=== PATIENT | male | born 1995 | race Caucasian/White ===

== ENCOUNTER 2017-06-01 06:40 | Emergency (ER) | payer BC ==
[2017-06-01 08:11] LABS: ABS Basophils 0 10^3/ul (0-0.2); ABS Eosinophils 0.3 10^3/ul (0-0.6); ABS Lymphocytes 1.5 10^3/ul (1.0-4.8); ABS Monocytes 0.7 10^3/ul (0-0.8); ABS Neutrophils 6.1 10^3/ul (1.5-7.7); ABS Nucleated RBC 0.01 10^3/ul; Eosinophil % 3.9 % (0-6); Hematocrit 50 % (42-52); Hemoglobin 17.2 g/dl (14.0-18.0); Lymphocyte % 16.9 % (25-47); Mean Corpuscular HGB Conc 35 g/dl (31-36); Mean Corpuscular Hemoglobin 30 pg (27-31); Mean Corpuscular Volume 86 fL (80-94); Mean Platelet Volume 9 um3 (7.4-10.4); Nucleated Red Blood Cells % 0.1; Platelet Count 212 10^3/ul (150-450); Red Blood Count 5.79 10^6/ul (4.0-5.4); Red Cell Distribution Width 13 % (10.5-15); White Blood Count 8.6 10^3/ul (3.5-10.8)
--- NOTE | 2017-06-01 08:15 | RAD ---
INDICATION: Short of breath COMPARISON: None TECHNIQUE: PA and lateral dual-energy views were obtained. FINDINGS: Bones/Soft Tissues: There are no acute bony findings. Cardiomediastinal: The cardiomediastinal silhouette is normal. Lungs: There are no infiltrates. Pleura: There are no pleural effusions. Other: None IMPRESSION: NEGATIVE EXAMINATION.
[2017-06-01 08:20] LABS: EGFR Non-African American 87.5 (>60)
[2017-06-01 08:37] VITALS: BP 148/84
--- NOTE | 2017-06-21 18:30 | ED ---
Jorge Gonzalez Thomas, scribed for Ronald Selby MD on 06/01/17 at 0804 . Allergic Reaction/Systemic - HPI Summary HPI Summary: The patient is a 22 year old male presenting to the ED complaining of facial and bilateral upper extremity erythema and rash beginning last evening but worsened upon waking. Patient describes bubbles on bilateral upper extremity. Patient reports facial swelling and mild SOB upon exertion. Patient denies coughing, wheezing, fever, chills, and asthma, or use of new soaps. Patient has a history of bee allergies and eczema. - History of Current Complaint Chief Complaint: EDAllergicReaction Hx Obtained From: Patient Onset/Duration: Started days ago - 1 day, Still Present Timing: Constant Severity Initially: Mild Severity Currently: Mild Pain Intensity: 3 Pain Scale Used: 0-10 Numeric Location: Diffuse - Facial and bilateral upper extremity Character: Swelling - facial Aggravating Factor(s): Nothing Alleviating Factor(s): Nothing Associated Signs And Symptoms: Positive: Difficulty Breathing - mild, upon exertion, Rash. Negative: Cough Wheezing, Other: - coughing, wheezing, fever, chills - Related Hx Possible Reaction To: Other: - soaps - Allergies/Home Medications Allergies/Adverse Reactions: Allergies Allergy/AdvReac Type Severity Reaction Status Date / Time Bee Venom Allergy Anaphylatic Verified 06/01/17 06:53 Shock spider bites Allergy Anaphylatic Uncoded 06/01/17 06:53 Shock PMH/Surg Hx/FS Hx/Imm Hx Previously Healthy: Yes Cardiovascular History: Reports: Other Cardiovascular Problems/Disorders - PT STATES "IRREGULAR HEARTBEAT" Respiratory History: Denies: Hx Asthma Musculoskeletal History: Reports: Hx Orthopedic Injury Infectious Disease History: No Infectious Disease History: Denies: Traveled Outside the [place] in Last 30 Days - Family History Known Family History: Positive: Other - breast and brain cancer - Social History Occupation: Employed Full-time Alcohol Use: None Substance Use Type: Reports: None Smoking Status (MU): Never Smoked Tobacco Review of Systems Negative: Fever, Chills Positive: Erythema, Other - edema Positive: Shortness Of Breath - mild upon exertion. Negative: Cough Positive: Rash - face and bilateral upper extremity All Other Systems Reviewed And Are Negative: Yes Physical Exam - Summary Physical Exam Summary: Appearance: Well-appearing, Well-nourished Skin: Rash on bilateral flexors. There is facial erythema Eyes: , PERRL, EOMI, sclera anicteric. There is periorbital edema. ENT: Normal Neck: Supple, nontender Respiratory: Clear to auscultation Cardiovascular: S1, S2, no murmur, no rub, no gallop Abdomen: Soft, nontender, no organomegaly Bowel sounds: Present Musculoskeletal: Normal, Strength/ROM Intact, no edema, pulses symmetrical Neurological: Normal, A&Ox3, cranial nerves II-XII WNL, follows commands, gait not tested, sensation intact to pin and light touch Psychiatric: affect normal, behavior appropriate, dressed appropriately, judgment intact Triage Information Reviewed: Yes Vital Signs On Initial Exam: Initial Vitals Temp Pulse Resp BP Pulse Ox 98.5 F 66 16 150/85 98 06/01/17 06:48 06/01/17 06:48 06/01/17 06:48 06/01/17 06:48 06/01/17 06:48 Vital Signs Reviewed: Yes - Danny Coma Scale Coma Scale Total: 15 Diagnostics - Vital Signs Vital Signs Temp Pulse Resp BP Pulse Ox 06/01/17 06:48 98.5 F 66 16 150/85 98 - Laboratory Result Diagrams: 06/01/17 07:40 06/01/17 07:40 Lab Statement: Any lab studies that have been ordered have been reviewed, and results considered in the medical decision making process. Allergic Reaction Course/Dx - Course Assessment/Plan: The patient's history and physical exam findings are consistent with contact dermatitis and eczema. The patient was observed for a couple of hours in the emergency department with no changes in symptoms noted. He will be discharged home. - Diagnoses Provider Diagnoses: Contact dermatitis, Eczema Discharge - Discharge Plan Condition: Stable Disposition: HOME The documentation as recorded by the Jorge whitney Thomas accurately reflects the service I personally performed and the decisions made by , Ronald Selby MD.
== END 2017-06-01 08:36 | disposition home or self-care (01) ==
LOC: ED 06:40
DX: L25.9 Unspecified contact dermatitis, unspecified cause (principal); R06.02 Shortness of breath; L53.9 Erythematous condition, unspecified; L30.9 Dermatitis, unspecified; R21 Rash and other nonspecific skin eruption
CPT/HCPCS: 36415; 71020; 80053; 85025; 99282

== ENCOUNTER 2019-04-09 17:52 | Emergency (ER) | payer BC ==
[2019-04-09 18:17] VITALS: BP 128/63
--- NOTE | 2019-04-09 19:03 | UC ---
General HPI - HPI Summary HPI Summary: Patient is a 24-year-old male presenting with tick bite to right side of ribs that he obtained yesterday while hunting. He removed it today but believes that the head may be attached to his skin still. He is concerned about bullseye rash as well. States the tick was on for maybe 10-12 hours. Denies fever or chills. Denies nausea or vomiting. Denies any drainage or bleeding from the site where the tick was attached. - History of Current Complaint Chief Complaint: UCSkin Stated Complaint: TICK BITE Hx Obtained From: Patient Pain Intensity: 1 - Allergy/Home Medications Allergies/Adverse Reactions: Allergies Allergy/AdvReac Type Severity Reaction Status Date / Time bee venom protein (honey bee) Allergy Anaphylatic Verified 04/09/19 18:18 Shock spider bites Allergy Anaphylatic Uncoded 04/09/19 18:18 Shock Home Medications: Home Medications NK [No Home Medications Reported] 04/09/19 [History Confirmed 04/09/19] PMH/Surg Hx/FS Hx/Imm Hx Previously Healthy: Yes - Surgical History Surgical History: Yes Surgery Procedure, Year, and Place: nose surgery, left eye surgery - Family History Known Family History: Positive: Other - breast and brain cancer - Social History Alcohol Use: Occasionally Substance Use Type: Marijuana Smoking Status (MU): Current Some Day Smoker Type: Cigars Review of Systems All Other Systems Reviewed And Are Negative: Yes Constitutional: Positive: Negative. Negative: Fever, Chills Skin: Positive: Other - tick bite to R chest Respiratory: Positive: Negative Cardiovascular: Positive: Negative Gastrointestinal: Positive: Negative Musculoskeletal: Positive: Negative Neurological: Positive: Negative Physical Exam Triage Information Reviewed: Yes Appearance: Well-Appearing, No Pain Distress, Well-Nourished Vital Signs: Initial Vital Signs Temp 98.3 F 04/09/19 18:13 Pulse 66 04/09/19 18:13 Resp 16 04/09/19 18:13 BP 128/63 04/09/19 18:13 Pulse Ox 100 04/09/19 18:13 Vital Signs Reviewed: Yes Eyes: Positive: Conjunctiva Clear ENT: Positive: Hearing grossly normal Neck: Positive: Supple Respiratory: Positive: No respiratory distress Neurological: Positive: Alert Psychological: Positive: Age Appropriate Behavior Skin: Positive: Other - 1cm area of erythema noted on R lateral chest where tick was attached. no head attached. no warmth or drainage noted Course/Dx - Course Course Of Treatment: Educated the patient on tick bites and Lyme disease. Patient was not given prophylactic treatment as tick was attached for 12 hours maximum. Instructed him to look for any signs and symptoms of skin infection over the next few days and to look for any signs of Lyme disease over the next month or so. Instructed him to follow up with PCP if needed. Patient voiced understanding and agreed with the plan. - Diagnoses Provider Diagnosis: Tick bite of right side of chest wall Discharge ED - Sign-Out/Discharge Documenting (check all that apply): Patient Departure All imaging exams completed and their final reports reviewed: No Studies - Discharge Plan Condition: Stable Disposition: HOME Patient Education Materials: Tick Bite (ED) Referrals: [facility] [Outside] - If Needed Additional Instructions: There does not appear to be any part of the tick left in your skin and there is no sign of infection. No treatment is needed at this time. Follow up with the [facility] if you experience weakness, severe headache, or a rash where you were the tick bit you. Go to the emergency room if you experience increasing redness, warmth, or drainage to the area. - Billing Disposition and Condition Condition: STABLE Disposition: Home
== END 2019-04-09 19:27 | disposition home or self-care (01) ==
LOC: UCEAST 17:52
DX: S20.361A Insect bite (nonvenomous) of right front wall of thorax, initial encounter (principal); F17.210 Nicotine dependence, cigarettes, uncomplicated; Z91.030 Bee allergy status; Z91.038 Other insect allergy status; W57.XXXA Bitten or stung by nonvenomous insect and other nonvenomous arthropods, initial encounter; Y92.9 Unspecified place or not applicable
CPT/HCPCS: 99211; G0463

== ENCOUNTER 2019-04-11 07:57 | Emergency (ER) | payer BC ==
[2019-04-11 08:03] VITALS: BP 151/98
--- NOTE | 2019-04-11 09:33 | ED ---
Skin Complaint - HPI Summary HPI Summary: This patient is a 24-year-old male who presents to the ED with the concern for a tick bite to his right side/abdomen. He states he first noticed the tick 2 days ago and was hunting that day. He believes he had a tick attached for less than 12 hours, but it could've been up to 24. He dislodge the tick 2 days ago. He endorses a very small slightly erythematous area just around with the tick was attached measuring approximately 0.5 cm in length. He states he is having no symptoms, but his boss sent him in here to "get antibiotics." He endorses no pain, joint aches, fevers, no history of Lyme disease. - History of Current Complaint Chief Complaint: EDGeneral Time Seen by Provider: 04/11/19 08:06 Stated Complaint: TICK BITE PER PT Hx Obtained From: Patient Onset/Duration: Started Days Ago Skin Exposure Onset/Duration: Days Ago Timing: Constant Onset Severity: Mild Current Severity: None Pain Intensity: 0 Pain Scale Used: 0-10 Numeric Skin Location: Other: - right sided abdomen Aggravating Symptom(s): Nothing Alleviating Symptom(s): Nothing Associated Signs & Symptoms: Negative Related History: Insect Bite/Sting - Allergy/Home Medications Allergies/Adverse Reactions: Allergies Allergy/AdvReac Type Severity Reaction Status Date / Time bee venom protein (honey bee) Allergy Anaphylatic Verified 04/11/19 08:27 Shock spider bites Allergy Anaphylatic Uncoded 04/11/19 08:27 Shock PMH/Surg Hx/FS Hx/Imm Hx Previously Healthy: Yes Cardiovascular History: Reports: Other Cardiovascular Problems/Disorders - PT STATES "IRREGULAR HEARTBEAT" Respiratory History: Denies: Hx Asthma Musculoskeletal History: Reports: Hx Orthopedic Injury - Surgical History Surgery Procedure, Year, and Place: nose surgery, left eye surgery - Immunization History Hx Pertussis Vaccination: No Immunizations Up to Date: Yes Infectious Disease History: No Infectious Disease History: Denies: Traveled Outside the [place] in Last 30 Days - Family History Known Family History: Positive: Other - breast and brain cancer - Social History Occupation: Employed Full-time Lives: With Family Alcohol Use: Weekly Hx Substance Use: No Substance Use Type: Reports: None Smoking Status (MU): Never Smoked Tobacco Type: Cigars Review of Systems Negative: Fever, Chills, Fatigue, Skin Diaphoresis Negative: Palpitations, Chest Pain Negative: Shortness Of Breath, Cough Genitourinary: Negative Positive: no symptoms reported, hematuria Negative: Arthralgia, Myalgia Positive: Other - .5cm erythematous area to the R sided abdomen without EM rash Neurological: Negative All Other Systems Reviewed And Are Negative: Yes Physical Exam Triage Information Reviewed: Yes Vital Signs On Initial Exam: Initial Vitals Temp Pulse Resp BP Pulse Ox 98.6 F 69 16 151/98 98 04/11/19 08:00 04/11/19 08:00 04/11/19 08:00 04/11/19 08:00 04/11/19 08:00 Vital Signs Reviewed: Yes Appearance: Positive: Well-Appearing, Well-Nourished Skin: Positive: Other - .5cm erythematous area to the R sided abdomen without EM rash Eyes: Positive: EOMI, ALAINA, Conjunctiva Clear Neck: Positive: Supple Respiratory/Lung Sounds: Positive: Breath Sounds Present Cardiovascular: Positive: Normal Musculoskeletal: Positive: Strength/ROM Intact Neurological: Positive: Speech Normal Psychiatric: Positive: Affect/Mood Appropriate Procedures - Sedation Patient Received Moderate/Deep Sedation with Procedure: No Diagnostics - Vital Signs Vital Signs Temp Pulse Resp BP Pulse Ox 04/11/19 08:00 98.6 F 69 16 151/98 98 - Laboratory Lab Statement: Any lab studies that have been ordered have been reviewed, and results considered in the medical decision making process. Course/Dx - Course Course Of Treatment: Patient has no history of Lyme disease and is experiencing no symptoms. He states he wanted to get the area of a previous tick bite 2 days ago "checked out." There is a small 0.5 cm erythematous area just around where the tick was attached. No EM rash. Patient is afebrile. Attached tick was estimated to have been on for less than 48 hours (closer to less than 12 hrs ). No prophylactic treatment was initiated. - Differential Diagnoses - Skin Complaint Differential Diagnoses: Local Allergic Reaction, Tick Born Illness - Diagnoses Provider Diagnoses: Tick bite Discharge ED - Sign-Out/Discharge Documenting (check all that apply): Patient Departure - Discharge Plan Condition: Stable Disposition: HOME Patient Education Materials: Tick Bite (ED) Referrals: No Primary Care Phys,NOPCP [Primary Care Provider] - Additional Instructions: Information given - Billing Disposition and Condition Condition: STABLE Disposition: Home
== END 2019-04-11 08:22 | disposition home or self-care (01) ==
LOC: ED 07:57
DX: S30.861A Insect bite (nonvenomous) of abdominal wall, initial encounter (principal); W57.XXXA Bitten or stung by nonvenomous insect and other nonvenomous arthropods, initial encounter; Y92.9 Unspecified place or not applicable
CPT/HCPCS: 99281